=== PATIENT | male | born 2000 | race Caucasian/White ===

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

== ENCOUNTER 2022-04-28 19:24 | Emergency (ER) | payer SELFPAY ==
[2022-04-28] MEDS ORDERED: Acetaminophen/HYDROcodone 325-5 MG Tab PO ONE (19:43)
[2022-04-28] MEDS ORDERED: HYDROmorphone 1 MG/ML Syringe IM ONE (19:54)
== END 2022-04-28 22:06 | disposition home or self-care (01) ==
LOC: JD.ED 19:24
DX: S52.131A Displaced fracture of neck of right radius, initial encounter for closed fracture (principal); Z86.16 Personal history of COVID-19; V14.0XXA Pedal cycle driver injured in collision with heavy transport vehicle or bus in nontraffic accident, initial encounter; Y92.410 Unspecified street and highway as the place of occurrence of the external cause
CPT/HCPCS: 73090; 96372; 99284; J1170